=== PATIENT | male | born 1955 | race Caucasian/White ===

== ENCOUNTER 2017-07-09 07:31 | Outpatient (CLI) | payer BC ==
[2017-07-09] MEDS ORDERED: ISOVUE-370 76%-LOCM 1 ML ONE (13:21)
== END 2017-07-09 07:32 | disposition home or self-care (01) ==
LOC: BICCT 07:31
PROVIDERS: ATTEND Urology
DX: R31.0 Gross hematuria (principal); N20.0 Calculus of kidney; N28.1 Cyst of kidney, acquired
CPT/HCPCS: 74178

== ENCOUNTER 2020-05-23 08:40 | Day surgery (SDC) | payer BC ==
[2020-05-23] MEDS ORDERED: Levofloxacin 500 mg/D5W 100 ml Premix Bag ONE (09:04)
--- NOTE | 2020-05-23 09:33 | RAD ---
XR Abdomen 1 View/KUB History: Preop evaluation Comparison: Radiograph June 14, 2019 Findings: Intact left double-J ureteral stent. Numerous phleboliths in the pelvis. Possible calcification projects over the left renal pelvis measuring up to 4 mm. Small cluster of calcifications projecting over the right renal shadow. Impression: 1. Intact left double-J ureteral stent. 2. Bilateral nephrolithiasis.
[2020-05-23] MEDS ORDERED: Iothalamate Meglumine 60% 50 ML VIAL FS ONE (11:56)
[2020-05-23] MEDS ORDERED: Fentanyl 100 MCG/2 ML VIAL ONE (12:16)
[2020-05-23] MEDS ORDERED: Glycopyrrolate 0.2 MG/ML 5 ML SYRINGE ONE (12:29)
[2020-05-23] MEDS ORDERED: Ketorolac Tromethamine 30 MG/ML VIAL ONE (12:29)
[2020-05-23] MEDS ORDERED: Ondansetron PF 4 MG/2 ML Vial ONE (12:29)
[2020-05-23] MEDS ORDERED: PROPOFOL 200 MG/20 ML VIAL ONE (12:29)
[2020-05-23] MEDS ORDERED: Rocuronium Bromide 10 MG/ML (10ML VIAL) ONE (12:29)
[2020-05-23] MEDS ORDERED: Lidocaine 1% PF 5 ML VIAL ONE (12:29)
[2020-05-23] MEDS ORDERED: Phenazopyridine HCl 100 MG TAB ONE ×2 (13:21)
[2020-05-23] MEDS ORDERED: Labetalol HCl 100 MG/20 ML VIAL ONE (13:26)
--- NOTE | 2020-05-23 13:42 | RAD ---
XR IVP Retrograde History: Left stent change and stone manipulation Comparison: Abdomen radiograph same day Findings: Multiple fluoroscopic images were obtained. On the last image double-J ureteral stent is vi sualized. Impression: Fluoroscopy for procedure purposes.
[2020-05-23] MEDS ORDERED: Acetaminophen 500 MG TAB ONE (14:04)
--- NOTE | 2020-05-24 07:27 | OP ---
DATE OF PROCEDURE: 05/23/2020 PRIMARY CARE PHYSICIAN: Ervin Mahmood MD PRIMARY UROLOGIST: Jamie Winter MD PREOPERATIVE DIAGNOSES: 1. A 65-year-old male with intractable left flank pain due to 7 to 8 mm left ureteral calculi at the level of L4. 2. Bilateral renal calculi: Left punctate x2, right mid to upper pole 10 mm with no right hydronephrosis. 3. Bilobar hyperplasia of the prostate. POSTOPERATIVE DIAGNOSES: 1. A 65-year-old male with intractable left flank pain due to 7 to 8 mm left ureteral calculi at the level of L4. 2. Bilateral renal calculi: Left punctate x2, right mid to upper pole 10 mm with no right hydronephrosis. 3. Bilobar hyperplasia of the prostate. PROCEDURES PERFORMED: Cystoscopy, left retrograde pyelogram, 6 x 30 double-J ureteral stent exchange on Dangler, ureteroscopy, laser lithotripsy, basket extraction of stone debris. ANESTHESIA: General. COMPLICATIONS: None apparent. DISPOSITION: To recovery room in stable condition. SPECIMEN: Stone for chemical analysis. INTRAOPERATIVE FINDINGS: 1. Migrated left proximal ureteral stone into the left mid to upper pole. 2. Multiple random plaques consistent with recurrent stone former. 3. Preop KUB with poor delineation of bilateral ureteral renal calculi. 4. Bilobar hyperplasia of the prostate with no median lobe. UOs about 2 to 3 mm proximal to the bladder neck. 5. Multiple sedimentous punctate calculi debris in the bladder. INDICATIONS FOR PROCEDURE AND HISTORY: Mr. Srinivasan is a pleasant 65-year-old male, followed by Dr. Winter. The patient was triaged by Dr. Winter's office and was sent to the emergency room due to intractable left flank pain. I placed a left ureteral stent and he presents today for definitive treatment of his ureteral renal calculi. Risks and complications of procedure have been discussed with him in detail including, but not limited to, bleeding, pain, infection, injury to adjacent organs, [id number] injury, stricture formation, possible secondary procedure reviewed. All questions answered to his satisfaction and he desired to proceed without reservation. DESCRIPTION OF PROCEDURE: After an informed consent was signed, the patient taken to the operating room, placed in a dorsal lithotomy position with the genital area prepped and draped in usual surgical sterile fashion. A 21-Czech cystoscope was utilized for cystoscopy, which demonstrated normal anterior urethra. Prostatic urethra demonstrates bilobar hyperplasia of the prostate moderately obstructing. No median lobe was noted. UOs are about 2 to 3 mm proximal to the bladder neck. Upon entering the bladder, there was punctate sedimentous calculi debris in the trigone, none warranting retrieval or laser lithotripsy. The UOs were in normal orthotopic position. A previously placed ureteral stent was removed to the level of the meatus and a 0.035 Sensor wire was placed into the left upper pole. Preop KUB demonstrates no obvious stone, previous while placing the stent initially, the stone was seen, visualized, migrating to the renal pelvis. As such, with the wire in situ, an open-ended 10-Czech dual-lumen access sheath was passed to the level of the prox ureter and a retrograde pyelogram was performed demonstrating no filling defect in the ureter consistent with stone. A second safety wire of 0.035 Super Stiff was placed into the left upper pole and at this time, a 12 x 14-Czech navigator was passed without significant issues to the level of the proximal ureter. A flexible ureteroscope was then advanced, and we visualized the stone, this had migrated into the left upper pole. The stone was black in color. A 273 micron ball-tip fiber was utilized at 1.2 joules. stone was very hard, I fragmented into multiple pieces. Using a Zero Tip Nitinol basket, we retrieved all fragments amendable to be retrieved atraumatically through the sheath. At the end of the procedure, there was no obvious stone debris of concern. The ureter was surveyed, which demonstrated no evidence of ureteral calculi or trauma of concern and a 6 x 30 double-J ureteral stent was passed. All wires were accounted for and the stent was left on Dangler as there was endoscopic clearance. This was taped to the patient's pubic symphysis. He was discharged, will see me next for stent pull on Dangler. As he does have benign prostatic hyperplasia on cystoscopy, recommend he continue tamsulosin. Job ID: [id number] [facility]
[2020-05-25 18:14] LABS: CA Oxalate Monohydrate 100 % (.); Color Brown (.); Stone Weight 76 mg (.)
== END 2020-05-23 15:21 | disposition home or self-care (01) ==
LOC: SDC 08:40
PROVIDERS: ATTEND Urology
PROC: 0T778DZ Dilation of Left Ureter with Intraluminal Device, Via Natural or Artificial Opening Endoscopic (ICD-10-PCS; principal; 2020-05-23)
PROC: 0TC48ZZ Extirpation of Matter from Left Kidney Pelvis, Via Natural or Artificial Opening Endoscopic (ICD-10-PCS; principal; 2020-05-23)
DX: N20.2 Calculus of kidney with calculus of ureter (principal); N40.0 Benign prostatic hyperplasia without lower urinary tract symptoms; I10 Essential (primary) hypertension; M10.9 Gout, unspecified; Z79.899 Other long term (current) drug therapy
CPT/HCPCS: 74018; 74420; 82365; 88300; J1885; J1956; J2405; J2704; J3010